=== PATIENT | male | born 1985 | race Caucasian/White ===

== ENCOUNTER 2018-06-21 00:07 | Emergency (ER) | payer MEDICAID ==
[~2018-06-21] VITALS: Ht 177.8 cm; Wt 65.8 kg
--- NOTE | 2018-06-21 00:35 | NUR ---
PT BIBSELF VOLUNTARILY SI WITH PLAN TO SUFFOCATE SELF OR JUMP IN [place]ACH OR TAKE PILLS. PT ADMITS TO "ALCOHOL AND G USE TODAY". PT ON MONITOR IN BED 13. NAD NOTED. PT DENIES PAIN AT THIS TIME. WILL CONTINUE TO MONITOR.
[2018-06-21 00:53] LABS: BASOPHILS # (AUTO) 0.2 /CMM (0.0-0.2); BASOPHILS % (AUTO) 1.5 % (0.0-2.0); EOSINOPHILS % (AUTO) 2.5 % (0.0-6.0); HEMATOCRIT 46 % (39-51); HEMOGLOBIN 15.8 g/dL (13.5-17.5); LYMPHOCYTES # (AUTO) 5.9 /CMM (0.8-4.8); LYMPHOCYTES % (AUTO) 50.8 % (20.0-44.0); MEAN CORPUSCULAR HGB CONC 34 g/dl (31.0-36.0); MEAN CORPUSCULAR VOLUME 93 fL (80-96); MONOCYTES # (AUTO) 0.6 /CMM (0.1-1.30); MONOCYTES % (AUTO) 5.3 % (2.0-12.0); NEUTROPHILS # (AUTO) 4.6 /CMM (1.8-8.9); NEUTROPHILS % (AUTO) 39.9 % (43.0-81.0); PLATELET COUNT (AUTO) 270 /CMM (150-450); RED BLOOD CELL COUNT(AUTO) 4.99 MIL/uL (4.5-6.0); WHITE BLOOD COUNT (AUTO) 11.6 K/uL (4.3-11.0)
[2018-06-21 00:55] LABS: APPEARANCE,URINE CLEAR (CLEAR); BILIRUBIN,URINE NEGATIVE (NEGATIVE); BLOOD, URINE NEGATIVE Ery/uL (NEGATIVE); COLOR,URINE YELLOW (YELLOW); KETONES,URINE NEGATIVE (NEGATIVE); LEUKOCYTE ESTERASE ,URINE NEGATIVE (NEGATIVE); NITRITE, URINE NEGATIVE (NEGATIVE); PROTEIN,URINE NEGATIVE (NEGATIVE); UGLUCOSE NEGATIVE (NEGATIVE); UROBILINOGEN,URINE 0.2 EU/dL (0.2)
[2018-06-21 01:05] LABS: CALCIUM, SERUM 8.2 mg/dL (8.5-10.1); CREATININE 0.8 mg/dL (0.6-1.3); POTASSIUM 3.9 mmol/L (3.5-5.1)
[2018-06-21 01:11] LABS: BILIRUBIN,DIRECT 0.1 mg/dL (0.0-0.2); BILIRUBIN,TOTAL 0.2 mg/dL (0.2-1.0); TOTAL PROTEIN, SERUM 7.3 g/dL (6.4-8.2)
--- NOTE | 2018-06-21 02:13 | NUR ---
Patient is resting comfortably in bed with eyes closed. Easily aroused. VSS
--- NOTE | 2018-06-21 05:29 | NUR ---
PHLEB AT BEDSIDE FOR REDRAW LABS
--- NOTE | 2018-06-21 05:42 | NUR ---
CALL [facility] [phone] EXT [phone] AT [phone] FOR REPORT. TRANSPORT ETA [phone].
--- NOTE | 2018-06-21 07:14 | NUR ---
REPORT GIVEN TO CONG SANDHU FOR [facility]
[2018-06-21 07:45] VITALS: BP 115/70
--- NOTE | 2018-06-21 08:17 | NUR ---
REPORT GIVEN TO JAGDISH GAR AT [facility]. PT AWAITING TRANSPORT.
--- NOTE | 2018-06-21 09:19 | NUR ---
PT TRANSFERED TO [facility] IN STABLE CONDITION.
== END 2018-06-21 09:21 ==
LOC: ER 00:11
DX: R45.851 Suicidal ideations (principal); F10.10 Alcohol abuse, uncomplicated; F19.10 Other psychoactive substance abuse, uncomplicated; F41.9 Anxiety disorder, unspecified; F32.9 Major depressive disorder, single episode, unspecified; F17.200 Nicotine dependence, unspecified, uncomplicated; F43.10 Post-traumatic stress disorder, unspecified; Z98.890 Other specified postprocedural states; Z88.8 Allergy status to other drugs, medicaments and biological substances; Y90.9 Presence of alcohol in blood, level not specified
CPT/HCPCS: 36415; 80048-TC; 80076-TC; 80305; 81000-TC; 85025-TC; G0480

== ENCOUNTER 2018-12-30 20:41 | Emergency (ER) | payer SELFPAY ==
[~2018-12-30] VITALS: Ht 177.8 cm; Wt 70.3 kg
--- NOTE | 2018-12-30 20:47 | NUR ---
BIBRA FROM STREET C/O SI WITH PLAN TO "DRINK MYSELF TO ". DENIES HI, AUDITORY HALLUCINATIONS AT THIS TIME. PT STATES HE WAS DRINKING EARLIER TODAY. PT AAOX4. RESPIRATIONS EVEN AND UNLABORED. SKIN INTACT. VITAL SIGNS STABLE. ABLE TO AMBULATE WITH STEADY GAIT. NO ACUTE DISTRESS NOTED AT THIS TIME. WILL CONTINUE TO MONITOR
--- NOTE | 2018-12-30 20:50 | NUR ---
URINE COLLECTED AND SENT TO LAB
--- NOTE | 2018-12-30 21:29 | NUR ---
THRESHING MACHINE OPERATOR AT BEDSIDE FOR BLOOD DRAW
[2018-12-30 21:34] LABS: BASOPHILS # (AUTO) 0.1 /CMM (0.0-0.2); BASOPHILS % (AUTO) 1.4 % (0.0-2.0); EOSINOPHILS % (AUTO) 0.7 % (0.0-6.0); HEMATOCRIT 42 % (39-51); HEMOGLOBIN 13.9 g/dL (13.5-17.5); LYMPHOCYTES # (AUTO) 3.4 /CMM (0.8-4.8); MEAN CORPUSCULAR HGB CONC 34 g/dl (31.0-36.0); MEAN CORPUSCULAR VOLUME 94 fL (80-96); MONOCYTES # (AUTO) 0.9 /CMM (0.1-1.30); MONOCYTES % (AUTO) 8.9 % (2.0-12.0); NEUTROPHILS # (AUTO) 5.5 /CMM (1.8-8.9); PLATELET COUNT (AUTO) 289 /CMM (150-450); RED BLOOD CELL COUNT(AUTO) 4.44 MIL/uL (4.5-6.0); WHITE BLOOD COUNT (AUTO) 9.9 K/uL (4.3-11.0)
[2018-12-30 21:35] LABS: APPEARANCE,URINE Clear (CLEAR); BILIRUBIN,URINE Negative (NEGATIVE); BLOOD, URINE Small Ery/uL (NEGATIVE); COLOR,URINE Yellow (YELLOW); KETONES,URINE Negative (NEGATIVE); LEUKOCYTE ESTERASE ,URINE Negative (NEGATIVE); NITRITE, URINE Negative (NEGATIVE); PROTEIN,URINE Negative (NEGATIVE); UGLUCOSE Negative (NEGATIVE); UROBILINOGEN,URINE 0.2 EU/dL (0.2)
[2018-12-30 21:42] LABS: CALCIUM, SERUM 7.9 mg/dL (8.5-10.1); POTASSIUM 4.4 mmol/L (3.5-5.1)
[2018-12-30 21:50] LABS: ALBUMIN 3.5 g/dL (3.4-5.0); BILIRUBIN,DIRECT 0.1 mg/dL (0.0-0.2); BILIRUBIN,TOTAL 0.2 mg/dL (0.2-1.0); SALICYLATE 5.2 mg/dL (2.8-20.0); TOTAL PROTEIN, SERUM 7.6 g/dL (6.4-8.2)
[2018-12-30 21:53] LABS: BACTERIA,URINE Rare /HPF (None Seen); SQUAMOUS EPITHELIAL CELL,UR Rare /HPF (None Seen); WBC,URINE 0-2 /HPF (0-3)
[2018-12-30 21:54] LABS: RBC,URINE 0-3 /HPF (0-2)
--- NOTE | 2018-12-31 01:12 | NUR ---
PT RESTING COMFORTABLY IN BED. VITAL SIGNS STABLE. SITTER AT BEDSIDE. WILL CONTINUE TO MONITOR
--- NOTE | 2018-12-31 06:18 | NUR ---
PT RESTING COMFORTABLY IN BED.VITAL SIGNS STABLE. SITTER AT BEDSIDE, WILL CONTINUE TO MONITOR.
--- NOTE | 2018-12-31 06:19 | NUR ---
COMMERCIAL INTELLIGENCE MANAGER AT BEDSIDE FOR BLOOD DRAW
--- NOTE | 2018-12-31 08:11 | NUR ---
CALLED [facility] [phone]
[2018-12-31] MEDS ORDERED: ACETAMINOPHEN ES 500 MG TABLET ONE (09:16)
[2018-12-31] MEDS: ACETAMINOPHEN ES 500 MG TABLET PO ONE (09:17)
[2018-12-31 11:20] VITALS: BP 131/80
--- NOTE | 2018-12-31 11:39 | NUR ---
Patient discharged to home in stable condition. Written and verbal after care instructions given. Patient verbalizes understanding of instruction.
== END 2018-12-31 11:40 | disposition home or self-care (01) ==
LOC: ER 20:50
DX: T42.4X1A Poisoning by benzodiazepines, accidental (unintentional), initial encounter (principal); F10.129 Alcohol abuse with intoxication, unspecified; F32.9 Major depressive disorder, single episode, unspecified; F41.9 Anxiety disorder, unspecified; F17.200 Nicotine dependence, unspecified, uncomplicated; Z88.8 Allergy status to other drugs, medicaments and biological substances; Y92.89 Other specified places as the place of occurrence of the external cause; Y90.8 Blood alcohol level of 240 mg/100 ml or more
CPT/HCPCS: 36415; 80048-TC; 80076-TC; 80305; 81000-TC; 85025-TC; G0480

== ENCOUNTER 2019-01-01 07:11 | Emergency (ER) | payer SELFPAY ==
[~2019-01-01] VITALS: Ht 177.8 cm; Wt 68.0 kg
--- NOTE | 2019-01-01 07:19 | NUR ---
PT BIBSELF C/O RUQ PAIN W/ N/V/D SINCE LAST NIGHT. BEEN DRINKING ALL NIGHT, PT IS AAOX4, NOT IN RESPIRATORY DISTRESS, HOOKED TO MONITOR. KEPT RESTED AND COMFORTABLE, WILL CONTINUE TO MONITOR.
--- NOTE | 2019-01-01 07:32 | NUR ---
SEEN AND EXAMINED BY
--- NOTE | 2019-01-01 07:40 | NUR ---
JONATAN CORTES ESTABLISHED, BLOOD DRAWNED AND SENT TO LAB.
--- NOTE | 2019-01-01 07:43 | NUR ---
URINAL GIVEN BUT UNABLE TO PROVIDE URINE SPECIMEN.
[2019-01-01 07:45] LABS: BASOPHILS # (AUTO) 0.1 /CMM (0.0-0.2); BASOPHILS % (AUTO) 0.9 % (0.0-2.0); EOSINOPHILS % (AUTO) 0.4 % (0.0-6.0); HEMATOCRIT 41 % (39-51); HEMOGLOBIN 14.2 g/dL (13.5-17.5); LYMPHOCYTES # (AUTO) 1.6 /CMM (0.8-4.8); LYMPHOCYTES % (AUTO) 17.6 % (20.0-44.0); MEAN CORPUSCULAR HGB CONC 35 g/dl (31.0-36.0); MEAN CORPUSCULAR VOLUME 92 fL (80-96); MONOCYTES # (AUTO) 1.1 /CMM (0.1-1.30); MONOCYTES % (AUTO) 11.8 % (2.0-12.0); NEUTROPHILS # (AUTO) 6.2 /CMM (1.8-8.9); NEUTROPHILS % (AUTO) 69.3 % (43.0-81.0); PLATELET COUNT (AUTO) 265 /CMM (150-450); RED BLOOD CELL COUNT(AUTO) 4.47 MIL/uL (4.5-6.0)
[2019-01-01 07:50] LABS: CALCIUM, SERUM 8.3 mg/dL (8.5-10.1); CREATININE 0.9 mg/dL (0.6-1.3)
--- NOTE | 2019-01-01 07:56 | NUR ---
PT IS BACK FROM THE CT SCAN.
[2019-01-01 07:57] LABS: ALBUMIN 3.6 g/dL (3.4-5.0); BILIRUBIN,DIRECT 0.2 mg/dL (0.0-0.2); BILIRUBIN,TOTAL 0.9 mg/dL (0.2-1.0)
[2019-01-01] MEDS ORDERED: IV NS 0.9% 1,000 ML BAG IV ONE (08:00)
[2019-01-01] MEDS ORDERED: KETOROLAC TROMETHAMINE 15 MG/ML VIAL ONE (08:20)
[2019-01-01] MEDS ORDERED: KETOROLAC TROMETHAMINE INJ 30 MG/ML VIAL IV ONE (08:30)
--- NOTE | 2019-01-01 08:53 | NUR ---
IV removed. Catheter intact and site benign. Pressure and 4x4 applied to site. No bleeding noted. Patient discharged to home in stable condition. Written and verbal after care instructions given. Patient verbalizes understanding of instruction.
[2019-01-01 08:54] VITALS: BP 121/81
== END 2019-01-01 08:57 | disposition home or self-care (01) ==
LOC: ER 07:17
DX: R10.11 Right upper quadrant pain (principal); K29.20 Alcoholic gastritis without bleeding; F10.10 Alcohol abuse, uncomplicated; F41.9 Anxiety disorder, unspecified; F32.9 Major depressive disorder, single episode, unspecified; F17.200 Nicotine dependence, unspecified, uncomplicated; Y90.9 Presence of alcohol in blood, level not specified; Z88.5 Allergy status to narcotic agent; Z59.0 Homelessness
CPT/HCPCS: 36415; 74176; 80048; 80076; 83690; 85025; 96374; 99284; J1885; J7030

== ENCOUNTER 2019-07-08 15:00 | Emergency (ER) | payer MEDICAID ==
[~2019-07-08] VITALS: Ht 177.8 cm; Wt 79.4 kg
[2019-07-08 15:08] VITALS: BP 124/89
== END 2019-07-08 19:02 | disposition home or self-care (01) ==
LOC: ER 15:08
DX: F10.129 Alcohol abuse with intoxication, unspecified (principal); F17.200 Nicotine dependence, unspecified, uncomplicated; Y90.9 Presence of alcohol in blood, level not specified; Z88.5 Allergy status to narcotic agent
CPT/HCPCS: 70450-TC

== ENCOUNTER 2019-07-08 22:50 | Emergency (ER) | payer MEDICAID ==
[~2019-07-08] VITALS: Ht 177.8 cm; Wt 64.0 kg
--- NOTE | 2019-07-08 23:22 | NUR ---
PT BIB RA 860 WITH A C/O CHEST PAIN X 1 DAY AND ETOH. PT STATED THAT HE WAS HERE EARLIER TODAY AND HAD CHEST PAIN AT THAT TIME. PT AMBULATED TO ER 7 WITH A STEADY GAIT.
[2019-07-08] MEDS ORDERED: ASPIRIN 81 MG TAB.CHEW PO ONE (23:30)
[2019-07-08] MEDS ORDERED: HYDROCODONE/APAP 10/325MG 1 EA TABLET PO ONE (23:30)
[2019-07-08] MEDS ORDERED: NITROGLYCERIN PACKET 1 GM PACKET TD ONE (23:30)
[2019-07-08 23:42] LABS: BASOPHILS # (AUTO) 0.1 /CMM (0.0-0.2); BASOPHILS % (AUTO) 1.3 % (0.0-2.0); EOSINOPHILS % (AUTO) 1.6 % (0.0-6.0); HEMATOCRIT 40 % (39-51); HEMOGLOBIN 13.4 g/dL (13.5-17.5); LYMPHOCYTES # (AUTO) 3.2 /CMM (0.8-4.8); LYMPHOCYTES % (AUTO) 37.2 % (20.0-44.0); MEAN CORPUSCULAR HGB CONC 33 g/dl (31.0-36.0); MEAN CORPUSCULAR VOLUME 91 fL (80-96); MONOCYTES # (AUTO) 0.6 /CMM (0.1-1.30); MONOCYTES % (AUTO) 7.1 % (2.0-12.0); NEUTROPHILS # (AUTO) 4.5 /CMM (1.8-8.9); NEUTROPHILS % (AUTO) 52.8 % (43.0-81.0); PLATELET COUNT (AUTO) 266 /CMM (150-450); RED BLOOD CELL COUNT(AUTO) 4.42 MIL/uL (4.5-6.0); WHITE BLOOD COUNT (AUTO) 8.5 K/uL (4.3-11.0)
[2019-07-08 23:50] LABS: CALCIUM, SERUM 8.3 mg/dL (8.5-10.1); CARBON DIOXIDE 27 mmol/L (21-32); CHLORIDE 104 mmol/L (98-107); CREATININE 0.9 mg/dL (0.6-1.3); GLUCOSE 130 mg/dL (74-106); POTASSIUM 4.2 mmol/L (3.5-5.1); SODIUM SERUM 142 mmol/L (136-145); UREA NITROGEN, BLOOD 11 mg/dL (7-18)
--- NOTE | 2019-07-08 23:55 | NUR ---
PT UNABLE TO PROVIDE A URINE SAMPLE AT THIS TIME. URINAL PLACED AT BEDSIDE.
[2019-07-08] MEDS ORDERED: HYDROCODONE/APAP 10/325MG 1 EA TABLET ONE (23:56)
[2019-07-08] MEDS ORDERED: NITROGLYCERIN PACKET 1 GM PACKET ONE (23:57)
[2019-07-08] MEDS ORDERED: ASPIRIN 81 MG TAB.CHEW ONE (23:57)
[2019-07-09 00:03] LABS: ALANINE AMINOTRANSFERASE 32 U/L (12-78); ALBUMIN 3.5 g/dL (3.4-5.0); ALKALINE PHOSPHATASE 77 U/L (46-116); ASPARTATE AMINOTRANSFERASE 30 U/L (15-37); B-TYPE NATRIURETIC PEPTIDE 12 PG/ML (0-125); BILIRUBIN,DIRECT 0.1 mg/dL (0.0-0.2); BILIRUBIN,TOTAL 0.3 mg/dL (0.2-1.0); TOTAL PROTEIN, SERUM 7.3 g/dL (6.4-8.2)
--- NOTE | 2019-07-09 00:38 | NUR ---
URINE SAMPLE OBTAINED AND SENT TO LAB.
--- NOTE | 2019-07-09 01:30 | NUR ---
PT APPEARS TO BE SLEEPING SOUNDLY WITH NO S/S OF PAIN OR DISTRESS.
--- NOTE | 2019-07-09 05:41 | NUR ---
DR HAIR IS AT THE BEDSIDE SPEAKING TO THE PT. PT IS STATING THAT HE IS SUICIDAL. PT WANTS TO DRINK HIMSELF TO .
--- NOTE | 2019-07-09 05:43 | NUR ---
PT TO BE EVALUATED WHEN HE IS SOBER.
[2019-07-09 06:16] LABS: SALICYLATE 4.4 mg/dL (2.8-20.0)
--- NOTE | 2019-07-09 07:14 | NUR ---
REPORT GIVEN TO CONG SHAH FOR [facility].
--- NOTE | 2019-07-09 07:16 | NUR ---
received report from Alice GAR for janes.
[2019-07-09 08:00] VITALS: BP 116/81
--- NOTE | 2019-07-09 08:00 | NUR ---
patient ambulatory with steady gait going to the bathroom. Patient states that he is not suicidal anymore, MD made aware. Will continue to monitor accordingly.
--- NOTE | 2019-07-09 09:09 | NUR ---
Patient eloped from facility. ER MD notified.
[2019-07-10 15:01] LABS: APPEARANCE,URINE CLEAR (CLEAR); BILIRUBIN,URINE NEGATIVE (NEGATIVE); BLOOD, URINE NEGATIVE Ery/uL (NEGATIVE); COLOR,URINE YELLOW (YELLOW); KETONES,URINE NEGATIVE (NEGATIVE); LEUKOCYTE ESTERASE ,URINE NEGATIVE (NEGATIVE); NITRITE, URINE NEGATIVE (NEGATIVE); PROTEIN,URINE NEGATIVE (NEGATIVE); UGLUCOSE NEGATIVE (NEGATIVE); UROBILINOGEN,URINE 0.2 EU/dL (0.2)
== END 2019-07-09 09:09 | disposition home or self-care (01) ==
LOC: ER 22:50
DX: R07.89 Other chest pain (principal); F10.129 Alcohol abuse with intoxication, unspecified; F17.200 Nicotine dependence, unspecified, uncomplicated; F41.9 Anxiety disorder, unspecified; F32.9 Major depressive disorder, single episode, unspecified; Z88.8 Allergy status to other drugs, medicaments and biological substances; Y90.9 Presence of alcohol in blood, level not specified
CPT/HCPCS: 36415 ×2; 71045; 80048; 80076; 80305; 80307 ×2; 80329; 81001; 83880; 84484 ×2; 85025; 93005; 99284; 99406; G0480; 81000-TC

== ENCOUNTER 2019-08-01 16:34 | Emergency (ER) | payer MEDICAID ==
[~2019-08-01] VITALS: Ht 177.8 cm; Wt 70.3 kg
--- NOTE | 2019-08-01 17:03 | NUR ---
PT AAOX4. AMBULATORY. C/O BILATERAL LEG PAIN. THE PATIENT STATES HE HAS BEEN DRINKING ALCOHOL X 3 DAYS. NO ACUTE DISTRESS NOTED. VSS.
[2019-08-01] MEDS ORDERED: ACETAMINOPHEN ES 500 MG TABLET ONE (17:29)
[2019-08-01] MEDS ORDERED: ACETAMINOPHEN 325 MG TABLET PO ONE (17:30)
--- NOTE | 2019-08-01 17:31 | NUR ---
Social service consult requested by for alcohol abuse. Pt is a 34-year-old male who came to the ED complaining of leg pain. PRELOAD SUPERVISOR met with the pt. bedside. Pt is alert and oriented x 4. Pt states he resides with a roommate in [place]. Pt states he partied too hard for his birthday and had a lot of hard liquor and drugs. Pt. has been to several alcohol treatment programs in the past. His most recent program was last year at [facility]. Pt was there for 10 months and started to drink again as soon as he left the program. Pt has a history of PTSD, Anxiety and Depression. Pt reports to have seen a therapist in the past. Pt is interested in resources to drug/alcohol treatment programs and Mental health clinics. PRELOAD SUPERVISOR encouraged pt to attend a treatment program again and provided the following resources: Mental Health clinics such as [facility] ; [facility] ; Health clinics;[facility] and Alcohol treatment centers such as [facility], ; [facility] Substance Abuse Hotline and [facility] . PRELOAD SUPERVISOR provided pt with active listening and supportive counseling. No other social service needs are requested at this time. and [facility] have been updated with aforementioned information.
--- NOTE | 2019-08-01 17:35 | NUR ---
PT STATES HE WILL BE PICKED UP BY [facility].
--- NOTE | 2019-08-01 17:58 | NUR ---
Patient discharged to home in stable condition. Written and verbal after care instructions given. Patient verbalizes understanding of instruction. PT Refused to sign discharge paper. Pt picked up by ale. Walked with steady gait.
[2019-08-01 17:59] VITALS: BP 132/82
== END 2019-08-01 17:59 | disposition home or self-care (01) ==
LOC: ER 16:35
DX: F19.10 Other psychoactive substance abuse, uncomplicated (principal); E72.81 Disorders of gamma aminobutyric acid metabolism; F14.10 Cocaine abuse, uncomplicated; F10.129 Alcohol abuse with intoxication, unspecified; R20.2 Paresthesia of skin; F41.9 Anxiety disorder, unspecified; F32.9 Major depressive disorder, single episode, unspecified; F17.200 Nicotine dependence, unspecified, uncomplicated; Y90.9 Presence of alcohol in blood, level not specified; Z90.81 Acquired absence of spleen; Z88.5 Allergy status to narcotic agent

== ENCOUNTER 2020-03-25 20:28 | Emergency (ER) | payer MEDICAID ==
[~2020-03-25] VITALS: Ht 177.8 cm; Wt 68.0 kg
--- NOTE | 2020-03-25 20:35 | NUR ---
PT BIBA FOR ANXIETY AND SI W/ A PLAN TO OD ON MEDS. PT DENIES HI. PT AAOX4, VSS, RESPIRATIONS EVEN AND UNLABORED ON RA W/ NAD NOTED. PT CONNECTED TO THE STOVE MECHANIC AND POX. PT CHANGED INTO GOWN, BELONGINGS PLACED TO LOCKER, SUICIDE PRECAUTIONS IMPLEMENTED. SITTER AT BEDSIDE FOR SAFETY.
--- NOTE | 2020-03-25 20:58 | NUR ---
RADIOLOGY AT BEDSIDE FOR XRAY
[2020-03-25] MEDS ORDERED: IV NS 0.9% 1,000 ML BAG IV ONE (21:00)
[2020-03-25 21:07] LABS: BASOPHILS # (AUTO) 0.1 /CMM (0.0-0.2); BASOPHILS % (AUTO) 0.9 % (0.0-2.0); EOSINOPHILS % (AUTO) 2.4 % (0.0-6.0); HEMATOCRIT 43 % (39-51); HEMOGLOBIN 15.2 g/dL (13.5-17.5); LYMPHOCYTES # (AUTO) 4.8 /CMM (0.8-4.8); LYMPHOCYTES % (AUTO) 46.8 % (20.0-44.0); MEAN CORPUSCULAR HGB CONC 35 g/dl (31.0-36.0); MEAN CORPUSCULAR VOLUME 93 fL (80-96); MONOCYTES # (AUTO) 0.6 /CMM (0.1-1.30); MONOCYTES % (AUTO) 6.3 % (2.0-12.0); NEUTROPHILS # (AUTO) 4.4 /CMM (1.8-8.9); NEUTROPHILS % (AUTO) 43.6 % (43.0-81.0); PLATELET COUNT (AUTO) 280 /CMM (150-450); RED BLOOD CELL COUNT(AUTO) 4.64 MIL/uL (4.5-6.0); WHITE BLOOD COUNT (AUTO) 10.2 K/uL (4.3-11.0)
[2020-03-25 21:12] LABS: CALCIUM, SERUM 7.7 mg/dL (8.5-10.1); CARBON DIOXIDE 24 mmol/L (21-32); CHLORIDE 99 mmol/L (98-107); CREATININE 0.9 mg/dL (0.6-1.3); GLUCOSE 135 mg/dL (74-106); POTASSIUM 4.2 mmol/L (3.5-5.1); SODIUM SERUM 135 mmol/L (136-145); UREA NITROGEN, BLOOD 16 mg/dL (7-18)
[2020-03-25 21:28] LABS: APPEARANCE,URINE CLEAR (CLEAR); BILIRUBIN,URINE NEGATIVE (NEGATIVE); BLOOD, URINE NEGATIVE Ery/uL (NEGATIVE); COLOR,URINE YELLOW (YELLOW); KETONES,URINE NEGATIVE (NEGATIVE); LEUKOCYTE ESTERASE ,URINE NEGATIVE (NEGATIVE); NITRITE, URINE NEGATIVE (NEGATIVE); PROTEIN,URINE NEGATIVE (NEGATIVE); UGLUCOSE NEGATIVE (NEGATIVE); UROBILINOGEN,URINE 0.2 EU/dL (0.2)
[2020-03-25 21:53] LABS: ALANINE AMINOTRANSFERASE 34 U/L (12-78); ALBUMIN 3.8 g/dL (3.4-5.0); ALKALINE PHOSPHATASE 77 U/L (46-116); ASPARTATE AMINOTRANSFERASE 26 U/L (15-37); BILIRUBIN,TOTAL 0.2 mg/dL (0.2-1.0)
[2020-03-25 21:54] LABS: ACETAMINOPHEN < 2 ug/ml (10-30); ALCOHOL, BLOOD < 3 mg/dL (0-0); SALICYLATE < 2.8 mg/dL (2.8-20.0); TOTAL PROTEIN, SERUM 7.8 g/dL (6.4-8.2)
--- NOTE | 2020-03-25 22:23 | NUR ---
PT AAOX4. REQUESTING VOLUNTARY ADMISSION TO PSYCH FACILITY. CLINICAL INFORMATION FAXED TO [facility]
--- NOTE | 2020-03-25 23:32 | NUR ---
COVID SWAB SENT TO LAB
--- NOTE | 2020-03-26 01:26 | NUR ---
TRANSFER INFORMATION: PT WILL BE TRANSFERRED TO [facility] ACCEPTING MD: DR. MEJIA NUMBER FOR REPORT: [phone] EXT [phone]
--- NOTE | 2020-03-26 01:38 | NUR ---
CALLED [facility] FOR TRANSPORTATION. CONFIRMATION [id number], WILL CALL BACK WITH ETA
[2020-03-26 01:48] VITALS: BP 108/65
--- NOTE | 2020-03-26 01:48 | NUR ---
PT AAOX4. STATES HE IS NO LONGER FEELING SUICIDAL. DENIES HI AT THIS TIME. DR. HAIR MADE AWARE.
--- NOTE | 2020-03-26 02:00 | NUR ---
PT ELOPED FROM FACILITY. DR. HAIR, HOSPITAL SECURITY, AND NURSING PRODUCT PROMOTER RETAIL PET MADE AWARE
== END 2020-03-26 02:06 | disposition left against medical advice (07) ==
LOC: ER 20:31
DX: R45.851 Suicidal ideations (principal); F41.9 Anxiety disorder, unspecified; E87.1 Hypo-osmolality and hyponatremia; E83.51 Hypocalcemia; Z20.828 Contact with and (suspected) exposure to other viral communicable diseases
CPT/HCPCS: 36415; 71045; 80048; 80076; 80299; 80307 ×2; 80320; 81001; 85025; 87426; 93005; 96360; 99285; C9803; J7030; 81000-TC; G0480

== ENCOUNTER 2020-04-09 20:02 | Emergency (ER) | payer MEDICAID ==
[~2020-04-09] VITALS: Ht 177.8 cm; Wt 68.0 kg
--- NOTE | 2020-04-09 20:15 | NUR ---
URINE COLLECTED AND SENT TO LAB
--- NOTE | 2020-04-09 20:21 | NUR ---
BALLOON SANDER AT BEDSIDE FOR COLLECTION
[2020-04-09 20:36] LABS: BASOPHILS # (AUTO) 0.1 /CMM (0.0-0.2); EOSINOPHILS % (AUTO) 1.1 % (0.0-6.0); HEMATOCRIT 45 % (39-51); HEMOGLOBIN 15.1 g/dL (13.5-17.5); LYMPHOCYTES # (AUTO) 3.6 /CMM (0.8-4.8); LYMPHOCYTES % (AUTO) 34.7 % (20.0-44.0); MEAN CORPUSCULAR HGB CONC 33 g/dl (31.0-36.0); MEAN CORPUSCULAR VOLUME 93 fL (80-96); MONOCYTES # (AUTO) 0.8 /CMM (0.1-1.30); MONOCYTES % (AUTO) 8.1 % (2.0-12.0); NEUTROPHILS # (AUTO) 5.7 /CMM (1.8-8.9); NEUTROPHILS % (AUTO) 55.1 % (43.0-81.0); PLATELET COUNT (AUTO) 318 /CMM (150-450); RED BLOOD CELL COUNT(AUTO) 4.85 MIL/uL (4.5-6.0); WHITE BLOOD COUNT (AUTO) 10.3 K/uL (4.3-11.0)
[2020-04-09 20:44] LABS: CALCIUM, SERUM 8.5 mg/dL (8.5-10.1); CARBON DIOXIDE 23 mmol/L (21-32); CHLORIDE 104 mmol/L (98-107); GLUCOSE 123 mg/dL (74-106); POTASSIUM 3.7 mmol/L (3.5-5.1); SODIUM SERUM 141 mmol/L (136-145); UREA NITROGEN, BLOOD 13 mg/dL (7-18)
[2020-04-09 20:49] LABS: ALANINE AMINOTRANSFERASE 44 U/L (12-78); ALBUMIN 3.7 g/dL (3.4-5.0); ALCOHOL, BLOOD 199 mg/dL (0-0); ALKALINE PHOSPHATASE 112 U/L (46-116); ASPARTATE AMINOTRANSFERASE 40 U/L (15-37); BILIRUBIN,DIRECT 0.1 mg/dL (0.0-0.2); BILIRUBIN,TOTAL 0.3 mg/dL (0.2-1.0); TOTAL PROTEIN, SERUM 7.8 g/dL (6.4-8.2)
[2020-04-09 20:50] LABS: ACETAMINOPHEN < 2 ug/ml (10-30)
[2020-04-09 20:55] LABS: APPEARANCE,URINE CLEAR (CLEAR); BILIRUBIN,URINE NEGATIVE (NEGATIVE); BLOOD, URINE TRACE-INTA Ery/uL (NEGATIVE); COLOR,URINE YELLOW (YELLOW); KETONES,URINE NEGATIVE (NEGATIVE); LEUKOCYTE ESTERASE ,URINE NEGATIVE (NEGATIVE); NITRITE, URINE NEGATIVE (NEGATIVE); PROTEIN,URINE 30 mg/dl (NEGATIVE); UGLUCOSE NEGATIVE (NEGATIVE); UROBILINOGEN,URINE 0.2 EU/dL (0.2)
--- NOTE | 2020-04-09 21:04 | NUR ---
PT BIBSELF C/O SUICIDAL IDEATION WITH PLAN TO RUN INTO TRAFFIC. PT AAOX4. CALM AND COOEPRATIVE. VITAL SIGNS STABLE. NO ACUTE DISTRESS NOTED AT THIS TIME. SUICIDAL PRECAUTIONS INITIATED. PLACED IN GOWN, BELONGINGS COLLECTED AND LOCKED IN PATIENT LOCKER. SITTER AT BEDSIDE. WILL CONTINUE TO MONITOR
[2020-04-09 21:07] LABS: BACTERIA,URINE None seen /HPF (None Seen); RBC,URINE 0-2 /HPF (0-2); SQUAMOUS EPITHELIAL CELL,UR 0-2 /HPF (None Seen); WBC,URINE 0-2 /HPF (0-3)
[2020-04-09 21:08] LABS: MUCUS,URINE Few /LPF (None Seen)
--- NOTE | 2020-04-10 00:33 | NUR ---
CLINICAL INFORMATION FAXED TO [facility] FOR VOLUNTARY PSYCH ADMISSION.
--- NOTE | 2020-04-10 02:03 | NUR ---
PT ACCEPTED AT [facility]EPTING MD MEJIA PT WILL GO TO UNIT 1 PHONE # FOR REPORT
--- NOTE | 2020-04-10 02:10 | NUR ---
[facility] CALLED FOR TRANSPORT. WILL CALL BACK FOR ETA. RESERVATION #[id number]
--- NOTE | 2020-04-10 03:14 | NUR ---
[facility] CALLED REGARDING TRANSPORT ([facility]) ETA 45MIN.
--- NOTE | 2020-04-10 03:52 | NUR ---
report given to [facility] Pt transfered to Mir Gonzalez
--- NOTE | 2020-04-10 03:52 | NUR ---
report given to Flakita GAR for janes
[2020-04-10 03:53] VITALS: BP 120/90
--- NOTE | 2020-04-10 03:55 | NUR ---
BELONGINGS RETURNED TO THE PATIENT.
== END 2020-04-10 03:55 ==
LOC: ER 20:06
DX: R45.851 Suicidal ideations (principal); F41.8 Other specified anxiety disorders; Z59.0 Homelessness; F10.129 Alcohol abuse with intoxication, unspecified; Y90.6 Blood alcohol level of 120-199 mg/100 ml; F17.200 Nicotine dependence, unspecified, uncomplicated; Z90.81 Acquired absence of spleen; Z20.828 Contact with and (suspected) exposure to other viral communicable diseases
CPT/HCPCS: 36415; 80048; 80076; 80299; 80307; 80320 ×2; 81001; 85025; 87426; 99285; C9803; 81000-TC; G0480

== ENCOUNTER 2020-05-08 20:06 | Emergency (ER) | payer MEDICAID ==
[~2020-05-08] VITALS: Ht 177.8 cm; Wt 73.9 kg
--- NOTE | 2020-05-08 20:45 | NUR ---
PT CAME TO THE ER C/O SI W/ A PLAN TO CUT WRIST. PT AAOX4, VSS, RESPIRATIONS EVEN AND UNLABORED ON RA W/ NAD NOTED. SITTER AT BEDSIDE FOR SAFETY. PT CHANGED INTO GOWN, BELONGINGS PLACED TO LOCKER AND SUICIDE PRECAUTIONS OBSERVED. PT CONNECTED TO THE MONITOR AND POX
--- NOTE | 2020-05-08 20:50 | NUR ---
URINE COLLECTED AND SENT TO LAB
[2020-05-08 21:19] LABS: BILIRUBIN,URINE NEGATIVE (NEGATIVE); BLOOD, URINE NEGATIVE Ery/uL (NEGATIVE); COLOR,URINE YELLOW (YELLOW); LEUKOCYTE ESTERASE ,URINE NEGATIVE (NEGATIVE); NITRITE, URINE NEGATIVE (NEGATIVE); PROTEIN,URINE NEGATIVE (NEGATIVE); UGLUCOSE NEGATIVE (NEGATIVE); UROBILINOGEN,URINE 0.2 EU/dL (0.2)
[2020-05-08 21:36] LABS: BASOPHILS # (AUTO) 0.1 /CMM (0.0-0.2); EOSINOPHILS % (AUTO) 1.9 % (0.0-6.0); HEMATOCRIT 41 % (39-51); HEMOGLOBIN 13.5 g/dL (13.5-17.5); LYMPHOCYTES # (AUTO) 4.1 /CMM (0.8-4.8); LYMPHOCYTES % (AUTO) 33.2 % (20.0-44.0); MEAN CORPUSCULAR HGB CONC 33 g/dl (31.0-36.0); MEAN CORPUSCULAR VOLUME 94 fL (80-96); MONOCYTES # (AUTO) 1.1 /CMM (0.1-1.30); MONOCYTES % (AUTO) 8.7 % (2.0-12.0); NEUTROPHILS # (AUTO) 6.8 /CMM (1.8-8.9); NEUTROPHILS % (AUTO) 55.2 % (43.0-81.0); PLATELET COUNT (AUTO) 298 /CMM (150-450); RED BLOOD CELL COUNT(AUTO) 4.31 MIL/uL (4.5-6.0); WHITE BLOOD COUNT (AUTO) 12.3 K/uL (4.3-11.0)
[2020-05-08 21:43] LABS: CALCIUM, SERUM 8.2 mg/dL (8.5-10.1); CARBON DIOXIDE 27 mmol/L (21-32); CHLORIDE 105 mmol/L (98-107); CREATININE 1.1 mg/dL (0.6-1.3); GLUCOSE 118 mg/dL (74-106); SODIUM SERUM 142 mmol/L (136-145); UREA NITROGEN, BLOOD 13 mg/dL (7-18)
[2020-05-08 21:49] LABS: ALANINE AMINOTRANSFERASE 38 U/L (12-78); ALBUMIN 3.7 g/dL (3.4-5.0); ALCOHOL, BLOOD < 3 mg/dL (0-0); ALKALINE PHOSPHATASE 67 U/L (46-116); ASPARTATE AMINOTRANSFERASE 24 U/L (15-37); BILIRUBIN,TOTAL 0.2 mg/dL (0.2-1.0); TOTAL PROTEIN, SERUM 7.1 g/dL (6.4-8.2)
[2020-05-08 21:51] LABS: ACETAMINOPHEN 0 ug/ml (10-30)
--- NOTE | 2020-05-08 22:26 | NUR ---
LAB CALLED REGARDING NEGATIVE COVID RESULT.
--- NOTE | 2020-05-08 22:44 | NUR ---
CLINICAL FAXED TO [facility] FOR VOLUNTARY PSYCH ADMISSION.
--- NOTE | 2020-05-09 00:31 | NUR ---
PT ACCEPTED AT [facility] ACCEPTING MD PATEL/DR. WOODS PT WILL GO TO UNIT 2 PHONE# FOR REPORT
--- NOTE | 2020-05-09 00:41 | NUR ---
called [facility] transport. spoke esvin trip #[id number]. per esvin will call back for eta.
--- NOTE | 2020-05-09 01:01 | NUR ---
SPOKE TO [facility]SP[facility] ETA 30-40MIN [facility].
--- NOTE | 2020-05-09 01:16 | NUR ---
called [facility] for eta transport update, per jorje called [place] [facility] for eta will be 4am
--- NOTE | 2020-05-09 01:26 | NUR ---
REPORT GIVEN TO CONG DYKES [facility]
[2020-05-09 02:07] VITALS: BP 107/77
--- NOTE | 2020-05-09 02:07 | NUR ---
REPORT GIVEN TO EMS, CALL THE CAR. PT STABLE FOR TRANSFER
== END 2020-05-09 02:09 ==
LOC: EDBD 20:16 → ER 20:16
DX: R45.851 Suicidal ideations (principal); F32.9 Major depressive disorder, single episode, unspecified; F41.9 Anxiety disorder, unspecified; Z59.0 Homelessness; Z90.81 Acquired absence of spleen; Z88.8 Allergy status to other drugs, medicaments and biological substances; Z91.013 Allergy to seafood; Z20.828 Contact with and (suspected) exposure to other viral communicable diseases; R00.0 Tachycardia, unspecified; D72.829 Elevated white blood cell count, unspecified; F12.10 Cannabis abuse, uncomplicated
CPT/HCPCS: 36415; 80048; 80076; 80299; 80307; 80320; 81001; 85025; 87426; 99285; C9803; G0480